=== PATIENT | female | born 1985 | race Caucasian/White ===

== ENCOUNTER 2016-11-14 11:38 | Emergency (ER) | payer SELFPAY ==
[2016-11-14 12:46] VITALS: BP 103/60
--- NOTE | 2016-11-14 12:53 | ED Physician Documentation ---
General Adult - HISTORIAN Historian: patient - HPI Stated Complaint: head and chest congestion Chief Complaint: General Adult Additional Information: Cough and sinus congestion for a week. vomited 3x today, not with cough. Urine x4. Right ear feels funny - ROS CONST: fever (feverish) - PAST HX Past History: none Other History: none Surgeries/Procedures: none Allergies/Adverse Reactions: Allergies Allergy/AdvReac Type Severity Reaction Status Date / Time No Known Allergies Allergy Verified 12/28/15 12:02 Home Medications: Ambulatory Orders Medication Instructions Recorded NK [NK] 07/18/15 - SOCIAL HX Smoking History: non-smoker - FAMILY HX Family History: No - VITAL SIGNS Vital Signs: Vital Signs Temp Pulse Resp BP Pulse Ox 98.0 F 78 16 103/60 98 11/14/16 12:44 11/14/16 12:44 11/14/16 12:44 11/14/16 12:44 11/14/16 12:44 - REVIEWED ASSESSMENTS Nursing Assessment Reviewed: Yes Vitals Reviewed: Yes ED Results Lab/Radiology - Lab Results Lab Results: Lab Results 11/14/16 12:30 Influenza Type A Ag Negative (NEGATIVE) Influenza Type B Ag Negative (NEGATIVE) - Orders Orders: ED Orders Category Date Time Status INFLUENZA A&B Stat Lab 11/14/16 12:30 Completed General Adult Physical Exam - PHYSICAL EXAM GENERAL APPEARANCE: no distress EENT: eye inspection normal, ENT inspection normal, pharynx normal, TM's nml, other (tender to palpation lrft ethmoid sinus area) NECK: normal inspection, supple RESPIRATORY: no resp distress, breath sounds normal CVS: reg rate & rhythm, heart sounds normal BACK: normal inspection, no CVA tenderness SKIN: warm/dry, normal color EXTREMITIES: normal range of motion (gait and stance), no evidence of injury, no edema NEURO: CN's nml as tested, motor nml, sensation nml, cognition normal Discharge Clincal Impression: Cold Referrals: Primary Doctor,No [Primary Care Provider] - 2 Days Additional Instructions: Home Medications: Ambulatory Orders NK [NK] 07/18/15 Condition: Good Disposition: 01 HOME, SELF-CARE Decision to Admit: NO Decision Time: 12:35
== END 2016-11-14 12:44 | disposition home or self-care (01) ==
LOC: ED 11:38
DX: J06.9 Acute upper respiratory infection, unspecified (principal)
CPT/HCPCS: 87070; 87400; 87880; 99282

== ENCOUNTER 2018-02-12 18:48 | Emergency (ER) | payer MEDICAID, OTHER ==
--- NOTE | 2018-02-12 19:29 | ED Physician Documentation ---
General Adult - HISTORIAN Historian: patient - HPI Stated Complaint: Nausea vomiting and positive test Chief Complaint: Nausea,Vomiting,Diarrhea Onset: other (total 4 weeks ) Timing: still present, better Severity: mild Further Comments: yes (She states over 4 weeks ago she started to have nausea and vomiting. She notes a positive test 2 weeks ago. States she cannot stop vomiting . She states she did drink plenty of fluids today. She is urinating well. Denies any bleeding or cramping) Last known Well Code/Unknown Code: Unknown - ROS CONST: no problems - PAST HX Past History: none Other History: none Surgeries/Procedures: none Immunizations: UTD Allergies/Adverse Reactions: Allergies Allergy/AdvReac Type Severity Reaction Status Date / Time No Known Allergies Allergy Verified 02/12/18 19:35 Home Medications: Ambulatory Orders Medication Instructions Recorded NK [NK] 07/18/15 - SOCIAL HX Smoking History: cigarettes Alcohol Use: none Drug Use: none - FAMILY HX Family History: No - VITAL SIGNS Vital Signs: Vital Signs Temp Pulse Resp BP Pulse Ox 103/60 11/14/16 12:44 - REVIEWED ASSESSMENTS Nursing Assessment Reviewed: Yes Vitals Reviewed: Yes Progress - Progress Progress: Discussed precautions. OTC meds to monitor for safety. Increase fluids DG General Adult Physical Exam - PHYSICAL EXAM GENERAL APPEARANCE: no distress EENT: eye inspection normal, ENT inspection normal, pharynx normal, no signs of dehydration NECK: normal inspection, thyroid normal RESPIRATORY: no resp distress, chest non-tender, breath sounds normal CVS: reg rate & rhythm, heart sounds normal, equal pulses, no murmur ABDOMEN: soft, no organomegaly, normal bowel sounds, no distension, non-tender BACK: normal inspection, no CVA tenderness SKIN: warm/dry, normal color EXTREMITIES: non-tender, normal range of motion, no evidence of injury, no edema NEURO: oriented X3, CN's nml as tested, motor nml, sensation nml, mood/affect nml, cognition normal Discharge Clincal Impression: Nausea/vomiting in UTI (urinary tract infection) Qualifiers: Urinary tract infection type: site unspecified Hematuria presence: without hematuria Qualified Code(s): N39.0 - Urinary tract infection, site not specified Referrals: Primary Doctor,No [Primary Care Provider] - 2 Days Comments: 1. Zofran 4 mg by mouth every 8 hours as needed for nausea 2. Macrobid 100 mg take 1 by mouth every 12 hours x 10 days 3. Increase fluids 4. See OBGYN 5. Return for symptoms of increasing nausea or urinary symptoms or other concerns Disposition: 01 HOME, SELF-CARE Decision to Admit: NO Date of Decison to Admit: 02/12/18 Decision Time: 19:58
[2018-02-12] MEDS ORDERED: NITROFURANTOIN 100 MG CAPSULE PO ONE (19:54)
[2018-02-12] MEDS ORDERED: ONDANSETRON HCL 4 MG TAB.RAPDIS PO ONE (19:55)
[2018-02-12 20:10] VITALS: BP 107/72
[2018-02-13 07:23] LABS: APPEARANCE,URINE CLEAR (CLEAR); COLOR,URINE YELLOW (YELLOW); OCCULT BLOOD,URINE NEGATIVE (NEGATIVE); URINE HCG POSITIVE (NEGATIVE)
== END 2018-02-12 20:09 | disposition home or self-care (01) ==
LOC: ED 18:48
DX: O21.9 Vomiting of pregnancy, unspecified (principal); N39.0 Urinary tract infection, site not specified
CPT/HCPCS: 81002; 81025; 87086; 87186; 99283; A9270

== ENCOUNTER 2019-05-05 19:13 | Emergency (ER) | payer SELFPAY ==
[2019-05-05] MEDS ORDERED: AMOXICILLIN 500 MG CAPSULE PO ONE (19:36)
--- NOTE | 2019-05-05 19:45 | ED Physician Documentation ---
Sore Throat/Dental Pain - HISTORIAN Historian: patient - HPI Stated Complaint: DENTAL PAIN Chief Complaint: Dental Pain Additional Information: Patient is a 33-year-old female who presents to the ER with dental pain that started yesterday. She has a mouth full of dental caries, broken teeth; etc. She states that she has a dentist appointment next week at [facility] Onset: days ago (yesterday) Context: Fractured Tooth, Dental Caries, Possible Infection Associated Symptoms: denies: fever, chills, unable to swallow Worsened By: denies: heat, cold - ROS CONST: no problems CVS/RESP: none GI/: denies: nausea, vomiting MS/SKIN/LYMPH: denies: muscle aches NEURO/PSYCH: none - PAST HX Past History: none Other History: none Immunizations: UTD Allergies/Adverse Reactions: Allergies Allergy/AdvReac Type Severity Reaction Status Date / Time No Known Drug Allergies Allergy Verified 05/05/19 19:29 Home Medications: Ambulatory Orders Medication Instructions Recorded Amoxicillin [Trimox] 500 mg PO TID #30 capsule 05/05/19 - SOCIAL HX Smoking History: greater than 1 pack/day Alcohol Use: none Drug Use: none - FAMILY HX Family History: No - VITAL SIGNS Vital Signs: Vital Signs Temp Pulse Resp BP Pulse Ox 97.9 F 63 18 121/51 99 05/05/19 19:13 05/05/19 19:13 05/05/19 19:13 05/05/19 19:13 05/05/19 19:13 - REVIEWED ASSESSMENTS Nursing Assessment Reviewed: Yes Vitals Reviewed: Yes ED Results Lab/Radiology - Orders Orders: ED Orders Category Date Time Status Amoxicillin [Amoxil] Med 05/05/19 19:36 Discontinued 1,000 mg PO NOW ONE Dental Pain Physical Exam - EXAM General Appearance: no acute distress, alert Head/Neck: head nml inspection Eyes: eyes nml inspection, PERRL Mouth/Throat: pharynx nml, voice nml, widespread dental decay Ear/Nose: nml inspection Respiratory: breath sounds nml CVS: heart sounds nml Extremities: non-tender Skin: warm/dry Neuro/Psych: none Discharge Clincal Impression: Pain, dental, Dental caries Prescriptions: Amoxicillin [Trimox] 500 mg PO TID #30 capsule Referrals: Fauzia Leavitt MD [Primary Care Provider] - 2 Days Additional Instructions: Take antibiotic; Amoxil 500mg by mouth every 8 hours for 10 days Continue to alternate Tylenol and Ibuprofen as needed for pain Use orajel or anbesol Keep appointment with Dentist next week Condition: Good Disposition: 01 HOME, SELF-CARE Decision to Admit: NO Decision Time: 19:46
[2019-05-05 19:47] VITALS: BP 107/72
== END 2019-05-05 19:45 | disposition home or self-care (01) ==
LOC: ED 19:13
DX: K02.9 Dental caries, unspecified (principal)

== ENCOUNTER 2019-06-01 22:13 | Emergency (ER) | payer SELFPAY ==
--- NOTE | 2019-06-01 22:22 | ED Physician Documentation ---
Sore Throat/Dental Pain - HISTORIAN Historian: patient - HPI Chief Complaint: Dental Pain Additional Information: Patient states that she ahs been having some pain associated with a tooth on the right lower molar area. Has been bothering for 3 day. Has seen a dentist about it. Has tried some oragel, ibuprofen and tylenol which has not helped. Has noticed some swelling and tenderness to the area. No fever or chils noted. Onset: hours (10) Associated Symptoms: denies: fever, chills, sore throat Worsened By: heat, cold Further Comments: no - ROS CONST: no problems CVS/RESP: none GI/: problems urinating MS/SKIN/LYMPH: muscle aches NEURO/PSYCH: none - PAST HX Past History: none Other History: none Immunizations: referred to PCP Allergies/Adverse Reactions: Allergies Allergy/AdvReac Type Severity Reaction Status Date / Time No Known Drug Allergies Allergy Verified 06/01/19 22:27 Home Medications: Ambulatory Orders Medication Instructions Recorded Amoxicillin [Trimox] 500 mg PO TID #30 capsule 06/01/19 - SOCIAL HX Smoking History: cigarettes, less than 1 pack/day Alcohol Use: none Drug Use: none - FAMILY HX Family History: No - VITAL SIGNS Vital Signs: Vital Signs Temp Pulse Resp BP Pulse Ox 107/72 05/05/19 19:45 - REVIEWED ASSESSMENTS Nursing Assessment Reviewed: Yes Vitals Reviewed: Yes Dental Pain Physical Exam - EXAM General Appearance: alert, mild distress Head/Neck: head nml inspection, no lymphadenopathy, thyroid nml Mouth/Throat: lips nml, dental tenderness, gum swelling around teeth, widespread dental decay. No: pharyngeal erythema Ear/Nose: nml inspection. No: TM erythema Respiratory: no resp. distress, breath sounds nml. No: wheezes, rales, rhonchi CVS: reg. rate & rhythm, heart sounds nml. No: murmur Neuro/Psych: none Discharge Clincal Impression: Dental caries Referrals: Fauzia Leavitt MD [Primary Care Provider] - 2 Days Additional Instructions: Take Amoxil as directed for 10 days. Take Aleve 220mg tab; 2 tabs twice a day with food to help with pain. Follow-up with your primary care provider an or dentist for further treatment. Return to ED as needed. Disposition: HOME, SELF-CARE Decision to Admit: NO Date of Decison to Admit: 06/01/19 Decision Time: 22:41
[2019-06-01] MEDS ORDERED: NAPROXEN 250 MG TABLET PO ONE (22:29)
[2019-06-01] MEDS ORDERED: AMOXICILLIN 500 MG CAPSULE PO ONE (22:30)
[2019-06-01 22:57] VITALS: BP 107/72
== END 2019-06-01 22:45 | disposition home or self-care (01) ==
LOC: ED 22:13
DX: K02.9 Dental caries, unspecified (principal)
CPT/HCPCS: 99282

== ENCOUNTER 2019-06-03 21:51 | Emergency (ER) | payer SELFPAY ==
--- NOTE | 2019-06-03 22:13 | ED Physician Documentation ---
Sore Throat/Dental Pain - HISTORIAN Historian: patient - HPI Chief Complaint: Dental Pain Context: Dental Caries Further Comments: yes (33 year old female patient presents with complaint of dental pain. Patient was seen on 06/01/[address] Carlos in the ER. Patient did not fill her prescription, she had "extra" amoxil at home which she started on Monday. Patient presents with complaint of severe pain. Has appointment to have teeth pulled in 2 weeks.) - ROS CONST: recent illness (seen in ER 06/01/19) - PAST HX Past History: gum disease Allergies/Adverse Reactions: Allergies Allergy/AdvReac Type Severity Reaction Status Date / Time No Known Drug Allergies Allergy Verified 06/01/19 22:27 Home Medications: Ambulatory Orders Medication Instructions Recorded Amoxicillin [Trimox] 500 mg PO TID #30 capsule 06/01/19 - SOCIAL HX Smoking History: cigarettes - FAMILY HX Family History: No - VITAL SIGNS Vital Signs: Vital Signs Temp Pulse Resp BP Pulse Ox 107/72 06/01/19 22:53 - REVIEWED ASSESSMENTS Nursing Assessment Reviewed: Yes Vitals Reviewed: Yes Progress - Progress Progress: Explained and educated patient that there was no medication to fix her teeth. She has multiple teeth with exposed pulp and root. Encourage patient to try dentax to cover the root, orajel and continue ibuprofen. Instructed to see dentist laura. Dental Pain Physical Exam - EXAM General Appearance: mild distress Eyes: eyes nml inspection, PERRL Mouth/Throat: lips nml, pharynx nml, voice nml, no drooling, no air way problems, no thrush, membranes nml, widespread dental decay (multiple teeth with exposed pulp and root. No abscess noted. ). No: gum swelling around teeth Respiratory: no resp. distress CVS: reg. rate & rhythm Skin: normal color, warm/dry, NR, INT, PAL, DR Neuro/Psych: none Discharge Clincal Impression: Dental caries, Pain, dental Referrals: Fauzia Leavitt MD [Primary Care Provider] - 2 Days Additional Instructions: Fill the prescription prescribed by Dr Carlos on 06/01/19 - follow the prescription directions. Ibuprofen 800mg every 8 hours x 3 days Tylenol 650-1000mg every 4 hours as needed for pain, limit your dose to 4G in 24 hours. Over the counter [employer] - follow package directions. 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 See your dentist as soon as possible Condition: Stable Disposition: 01 HOME, SELF-CARE Decision to Admit: NO Decision Time: 22:13
[2019-06-03] MEDS: HYDROcodone /APAP 5/325 1 EACH TABLET PO ONE (22:24)
[2019-06-03 23:00] VITALS: BP 99/69
== END 2019-06-03 22:24 | disposition home or self-care (01) ==
LOC: ED 21:51
DX: K02.9 Dental caries, unspecified (principal)
CPT/HCPCS: 99282; A9270